=== PATIENT | male | born 1965 | race African-American/Black ===

== ENCOUNTER 2017-11-26 19:27 | Emergency (ER) | payer OTHER ==
[~2017-11-26] VITALS: Ht 180.3 cm; Wt 71.3 kg
[2017-11-26 19:32] VITALS: BP 126/67; PULSE 84; RESP 18; TEMP 101.1; O2SAT 96
[2017-11-26 20:00] VITALS: O2SAT 97
[2017-11-26] MEDS ORDERED: ACETAMINOPHEN 650 MG SUPP RECTAL ONE (20:00)
[2017-11-26] MEDS ORDERED: SODIUM CHLOR 0.9% 1000 ML INJ 1,000 ML IV ONE (20:00)
--- NOTE | 2017-11-26 20:18 | PD ---
HPI . Hiccups Chief Complaint: Cold / Flu Symptoms Time Seen by Provider: 19:56 Travel History International Travel<30 days: No Contact w/Intl Traveler<30days: No Traveled to known affect area: No History of Present Illness HPI This patient presents with a chief complaint of hiccups for the last 2 days. The hiccups are causing abdominal pain which he rates 10/10. The hiccups are continuous. He also reports vomiting. In addition, he has a "cold" with rhinorrhea and cough. He has taken TheraFlu for that. Last dose was 4-5 hours ago. Symptoms have not improved with TheraFlu. PFSH Past Medical History Medical History: Denies Significant Hx Tetanus Vaccination: > 5 Years Influenza Vaccination: No Past Surgical History Surgical History: No Previous Surgery Social History Alcohol Use: Yes (2 BEERS DAILY) Tobacco Use: Yes (1/2 PPD) Substance Use: No Allergies-Medications (Allergen,Severity, Reaction): Coded Allergies: penicillin G (Verified Allergy, Unknown, FAINTS, 11/26/17) Reported Meds & Prescriptions Reported Meds & Active Scripts Active No Active Prescriptions or Reported Medications Review of Systems Except as stated in HPI: all other systems reviewed are Neg General / Constitutional: Positive: Fever, Chills HENT: Positive: Rhinorrhea Respiratory: Positive: Cough Gastrointestinal: Positive: Nausea, Vomiting, Abdominal Pain Physical Exam Narrative Vital Signs Date Time Temp Pulse Resp B/P (MAP) Pulse Ox O2 Delivery O2 Flow Rate FiO2 11/26/17 20:00 97 Room Air 11/26/17 19:37 Room Air 11/26/17 19:32 101.1 84 18 126/67 (86) 96 GENERAL: Awake and alert. Continuous, rhythmic hiccups. SKIN: warm/dry. HEAD: Normocephalic. Atraumatic. EYES: Pupils equal and round. No scleral icterus. No injection or drainage. ENT: No nasal bleeding or discharge. Mucous membranes pink and moist. NECK: Trachea midline. Full range of motion without pain.. CARDIOVASCULAR: Regular rate and rhythm. Heart sounds normal. RESPIRATORY: No accessory muscle use. Clear to auscultation. Breath sounds equal bilaterally. GASTROINTESTINAL: Abdomen soft. Upper abdominal tenderness with no guarding or rebound. Bowel sounds present. Nondistended. MUSCULOSKELETAL: No obvious deformities. NEUROLOGICAL: Awake and alert. No obvious cranial nerve deficits. Motor grossly within normal limits. Normal speech. PSYCHIATRIC: Appropriate mood and affect; insight and judgment normal. Data Data Last Documented VS Vital Signs Date Time Temp Pulse Resp B/P (MAP) Pulse Ox O2 Delivery O2 Flow Rate FiO2 11/26/17 20:46 101.1 78 18 123/73 (90) 96 Room Air Orders Orders Chlorpromazine Inj (Thorazine Inj) (11/26/17 20:00) Sepsis Workup Initiated (11/26/17 ) Complete Blood Count With Diff (11/26/17 19:56) Comprehensive Metabolic Panel (11/26/17 19:56) Lactic Acid Sepsis Protocol (11/26/17 19:56) Blood Culture (11/26/17 19:56) Chest, Single Ap (11/26/17 19:56) Ecg Monitoring (11/26/17 19:56) Iv Access Insert/Monitor (11/26/17 19:56) Oximetry (11/26/17 19:56) Acetaminophen Supp (Tylenol Supp) (11/26/17 20:00) Sodium Chlor 0.9% 1000 Ml Inj (Ns 1000 M (11/26/17 20:00) Influenzae A/B Antigen (11/26/17 19:56) Ibuprofen (Motrin) (11/26/17 21:00) Labs Laboratory Tests Test 11/26/17 20:10 White Blood Count 9.0 TH/MM3 Red Blood Count 5.03 MIL/MM3 Hemoglobin 16.1 GM/DL Hematocrit 46.3 % Mean Corpuscular Volume 92.0 FL Mean Corpuscular Hemoglobin 31.9 PG Mean Corpuscular Hemoglobin Concent 34.7 % Red Cell Distribution Width 12.9 % Platelet Count 142 TH/MM3 Mean Platelet Volume 10.2 FL Neutrophils (%) (Auto) 79.6 % Lymphocytes (%) (Auto) 12.6 % Monocytes (%) (Auto) 7.3 % Eosinophils (%) (Auto) 0.1 % Basophils (%) (Auto) 0.4 % Neutrophils # (Auto) 7.2 TH/MM3 Lymphocytes # (Auto) 1.1 TH/MM3 Monocytes # (Auto) 0.7 TH/MM3 Eosinophils # (Auto) 0.0 TH/MM3 Basophils # (Auto) 0.0 TH/MM3 CBC Comment DIFF FINAL Differential Comment Blood Urea Nitrogen 12 MG/DL Creatinine 1.10 MG/DL Random Glucose 111 MG/DL Total Protein 8.6 GM/DL Albumin 4.0 GM/DL Calcium Level 8.9 MG/DL Alkaline Phosphatase 50 U/L Aspartate Amino Transf (AST/SGOT) 67 U/L Alanine Aminotransferase (ALT/SGPT) 49 U/L Total Bilirubin 0.2 MG/DL Sodium Level 133 MEQ/L Potassium Level 4.2 MEQ/L Chloride Level 96 MEQ/L Carbon Dioxide Level 28.2 MEQ/L Anion Gap 9 MEQ/L Estimat Glomerular Filtration Rate 86 ML/MIN Lactic Acid Level 1.2 mmol/L [facility] Medical Decision Making Medical Screen Exam Complete: Yes Emergency Medical Condition: Yes Differential Diagnosis Differential diagnosis of fever includes but is not limited to viral illness, strep throat, otitis media, pneumonia, sepsis, UTI Narrative Course This patient presents with a chief complaint of hiccups and the secondary complaint of "a cold." He has a fever here while 101.9. I have ordered Thorazine for his hiccups. Septic workup is in process. Fever will be treated with Tylenol. He is also being given a liter of fluid. Hiccups have stopped with Thorazine. CBC & BMP Diagram 11/26/17 20:10 Total Protein 8.6 H, Albumin 4.0, Calcium Level 8.9, Alkaline Phosphatase 50, Aspartate Amino Transf (AST/SGOT) 67 H, Alanine Aminotransferase (ALT/SGPT) 49, Total Bilirubin 0.2 Flu screen is negative. Lactic acid is 1.2. Chest x-ray has been read as negative by the radiologist. It has been independently viewed by me. Diagnosis Primary Impression: Intractable hiccups Additional Impression: Fever Qualified Codes: R50.9 - Fever, unspecified Patient Instructions: Fever in Adults (ED), General Instructions, Hiccups (DC) Scripts No Active Prescriptions or Reported Meds Disposition: DISCHARGE HOME Condition: Stable Sandrine Parra MD Nov 26, 2017 20:18
[2017-11-26 20:33] LABS: AUTOMATED NEUTROPHIL # 7.2 TH/MM3 (1.8-7.7); BASOPHIL % 0.4 % (0.0-2.0); EOSINOPHIL % 0.1 % (0.0-4.0); HEMATOCRIT 46.3 % (39.0-51.0); HEMOGLOBIN 16.1 GM/DL (13.0-17.0); LYMPH % 12.6 % (9.0-44.0); LYMPHOCYTE # 1.1 TH/MM3 (1.0-4.8); MEAN CORPUSCULAR HEMOGLOBIN 31.9 PG (27.0-34.0); MEAN CORPUSCULAR HGB CONC 34.7 % (32.0-36.0); MEAN PLATELET VOLUME 10.2 FL (7.0-11.0); MONO % 7.3 % (0.0-8.0); MONOCYTE # 0.7 TH/MM3 (0-0.9); NEUT % 79.6 % (16.0-70.0); PLATELET COUNT 142 TH/MM3 (150-450); RED BLOOD COUNT 5.03 MIL/MM3 (4.50-5.90); RED CELL DISTRIBUTION WIDTH 12.9 % (11.6-17.2)
[2017-11-26 20:39] LABS: CHLORIDE 96 MEQ/L (98-107); SODIUM (NA) 133 MEQ/L (136-145)
[2017-11-26 20:43] LABS: BICARBONATE 28.2 MEQ/L (21.0-32.0); BLOOD UREA NITROGEN 12 MG/DL (7-18); CALCIUM 8.9 MG/DL (8.5-10.1); GLUCOSE,RANDOM 111 MG/DL (74-106)
[2017-11-26 20:46] VITALS: BP 123/73; PULSE 78; RESP 18; TEMP 101.1; O2SAT 96
[2017-11-26 20:46] LABS: ALT (GPT) 49 U/L (12-78); AST (GOT) 67 U/L (15-37); GLOMERULAR FILTRATION RATE 86 ML/MIN (>89)
[2017-11-26 20:48] LABS: TOTAL BILIRUBIN ADULT 0.2 MG/DL (0.2-1.0); TOTAL PROTEIN 8.6 GM/DL (6.4-8.2)
[2017-11-26 20:49] LABS: ALKALINE PHOSPHATASE 50 U/L (45-117)
--- NOTE | 2017-11-26 20:58 | RADRPT ---
EXAM DATE/TIME: 11/26/2017 20:20 [facility] COMPARISON: No previous studies available for comparison. INDICATIONS : Fever, cough. MEDICAL HISTORY : None. SURGICAL HISTORY : None. ENCOUNTER: Initial ACUITY: 1 day PAIN SCORE: 0/10 LOCATION: Bilateral chest FINDINGS: A single view of the chest demonstrates the lungs to be symmetrically aerated without evidence of mas s, infiltrate or effusion. The cardiomediastinal contours are unremarkable. Osseous structures are intact. CONCLUSION: No acute disease. Akash Squires MD on November 26, 2017 at 20:56 Board Certified Radiologist. This report was verified electronically.
[2017-11-26] MEDS ORDERED: IBUPROFEN 800 MG TAB PO ONE (21:00)
[2017-11-26 21:38] VITALS: TEMP 98.2
== END 2017-11-26 21:42 | disposition home or self-care (01) ==
LOC: PHED 19:27
DX: R06.6 Hiccough (principal); B95.8 Unspecified staphylococcus as the cause of diseases classified elsewhere; R50.9 Fever, unspecified; R09.81 Nasal congestion; R05 Cough; R11.2 Nausea with vomiting, unspecified; F17.200 Nicotine dependence, unspecified, uncomplicated; Z88.0 Allergy status to penicillin
CPT/HCPCS: 71045; 80053; 83605; 85025; 86403; 87040; 87077; 87186; 87205; 87804; 96360; 96372; 99284; J3230; J7030

== ENCOUNTER 2017-11-28 15:00 | Inpatient (IN) | payer OTHER ==
[~2017-11-28] VITALS: Ht 180.3 cm; Wt 71.1 kg
[2017-11-28 15:28] VITALS: BP 126/64; PULSE 68; RESP 18; TEMP 98.9; O2SAT 99
[2017-11-28] MEDS ORDERED: SODIUM CHLOR 0.9% 1000 ML INJ 1,000 ML IV ONE (15:55)
[2017-11-28] MEDS ORDERED: VANCOMYCIN INJ 1,000 MG in SODIUM CHLOR 0.9% 250 ML INJ 250 ML IV ONE (16:00)
[2017-11-28] MEDS ORDERED: chlorproMAZINE INJ 25 MG in SODIUM CHLORID 0.9% 500 ML INJ 500 ML IV ONE ×2 (16:00→16:45)
--- NOTE | 2017-11-28 16:00 | PD ---
HPI Chief Complaint: Respiratory Symptoms Time Seen by Provider: 15:51 Travel History International Travel<30 days: No Contact w/Intl Traveler<30days: No Traveled to known affect area: No History of Present Illness HPI 52-year-old male seen in the emergency department 2 days ago for fever and intractable hiccups which resolved after Thorazine, call back today for positive blood cultures. The patient's cultures grew gram-positive cocci. Patient reports ongoing hiccups which started 4 days ago. He complains of abdominal pain, vomiting, and cough productive of yellowish sputum as well as some hemoptysis. He complained of generalized malaise. Abdominal pain is cramping, worse with hiccups, coughing, and vomiting. No diarrhea. No history of abdominal surgeries. He smokes cigarettes. No history of IVDU. [facility] Social History Alcohol Use: Yes (2 BEERS DAILY) Tobacco Use: Yes (1/2 PPD) Substance Use: No Allergies-Medications (Allergen,Severity, Reaction): Coded Allergies: penicillin G (Verified Allergy, Unknown, FAINTS, 11/28/17) Reported Meds & Prescriptions Reported Meds & Active Scripts Active No Active Prescriptions or Reported Medications Review of Systems Except as stated in HPI: all other systems reviewed are Neg Physical Exam Narrative GENERAL: Well-developed, well-nourished, persistent hiccups SKIN: Focused skin assessment warm/dry. No rash. HEAD: Atraumatic. Normocephalic. EYES: Pupils equal and round. No scleral icterus. No injection or drainage. ENT: No nasal bleeding or discharge. Mucous membranes pink and moist. Normal appearing pharynx without erythema or exudates. NECK: Trachea midline. No JVD. No nuchal rigidity. CARDIOVASCULAR: Regular rate and rhythm. No murmur appreciated. RESPIRATORY: No accessory muscle use. Clear to auscultation. Breath sounds equal bilaterally. GASTROINTESTINAL: Abdomen soft, nondistended. Moderate diffuse tenderness without peritoneal signs. MUSCULOSKELETAL: No obvious deformities. No clubbing. No cyanosis. No edema. NEUROLOGICAL: Awake and alert. No obvious cranial nerve deficits. Motor grossly within normal limits. Normal speech. PSYCHIATRIC: Appropriate mood and affect; insight and judgment normal. Data Data Last Documented VS Vital Signs Date Time Temp Pulse Resp B/P (MAP) Pulse Ox O2 Delivery O2 Flow Rate FiO2 11/28/17 16:30 Room Air 11/28/17 16:30 16 100 11/28/17 15:28 98.9 68 126/64 (84) Orders Orders Sepsis Workup Initiated (11/28/17 ) Electrocardiogram (11/28/17 15:55) Complete Blood Count With Diff (11/28/17 15:55) Comprehensive Metabolic Panel (11/28/17 15:55) Prothrombin Time / Inr (Pt) (11/28/17 15:55) Act Partial Throm Time (Ptt) (11/28/17 15:55) Lactic Acid Sepsis Protocol (11/28/17 15:55) Lipase (11/28/17 15:55) Ckmb (Isoenzyme) Profile (11/28/17 15:55) Troponin I (11/28/17 15:55) Urinalysis - C+S If Indicated (11/28/17 15:55) Influenzae A/B Antigen (11/28/17 15:55) Blood Culture (11/28/17 15:55) Chest, Single Ap (11/28/17 15:55) Ecg Monitoring (11/28/17 15:55) Iv Access Insert/Monitor (11/28/17 15:55) Oximetry (11/28/17 15:55) Ct Abd/Pel W Iv Contrast(Rout) (11/28/17 15:55) Sodium Chlor 0.9% 1000 Ml Inj (Ns 1000 M (11/28/17 15:55) Vancomycin Inj (Vancomycin Inj) (11/28/17 16:00) Group A Rapid Strep Screen (11/28/17 15:55) Ct Pulmonary Angiogram (11/28/17 ) Chlorpromazine Inj (Thorazine Inj) (11/28/17 16:00) Chlorpromazine Inj (Thorazine Inj) (11/28/17 16:45) Iohexol 350 Inj (Omnipaque 350 Inj) (11/28/17 16:54) Strep Culture (Group A) (11/28/17 16:15) Cefepime Inj (Maxipime Inj) (11/28/17 17:30) Labs Laboratory Tests Test 11/28/17 16:15 White Blood Count 9.7 TH/MM3 Red Blood Count 4.76 MIL/MM3 Hemoglobin 14.8 GM/DL Hematocrit 44.7 % Mean Corpuscular Volume 93.7 FL Mean Corpuscular Hemoglobin 31.0 PG Mean Corpuscular Hemoglobin Concent 33.1 % Red Cell Distribution Width 12.7 % Platelet Count 165 TH/MM3 Mean Platelet Volume 10.0 FL Neutrophils (%) (Auto) 78.3 % Lymphocytes (%) (Auto) 12.0 % Monocytes (%) (Auto) 6.7 % Eosinophils (%) (Auto) 0.1 % Basophils (%) (Auto) 2.9 % Neutrophils # (Auto) 7.6 TH/MM3 Lymphocytes # (Auto) 1.2 TH/MM3 Monocytes # (Auto) 0.6 TH/MM3 Eosinophils # (Auto) 0.0 TH/MM3 Basophils # (Auto) 0.3 TH/MM3 CBC Comment DIFF FINAL Differential Comment Lactic Acid Level 1.4 mmol/L [facility] Medical Decision Making Medical Screen Exam Complete: Yes Emergency Medical Condition: Yes Medical Record Reviewed: Yes Differential Diagnosis Sepsis, bacteremia, endocarditis, PE, intra-abdominal abnormality, ACS, metabolic abnormality, lung mass, strep pharyngitis, influenza, singultus Narrative Course Vital signs show heart rate 60, blood pressure 126/64, pulse ox 99% on room air , oral temperature 98.9F. CBC: WBC 9.7, hemoglobin 14.8, hematocrit 44.7, platelets 165, neutrophils 78.3% . CMP Lactic acid is 1.4. CT pulmonary angiogram: CONCLUSION: 1. No PE is identified. 2. Dense airspace consolidation in the right upper lobe with patchy airspace opacities in both lower lobes. The appearances are characteristic of an infectious process. Recommend followup imaging to confirm resolution. 3. Paraseptal emphysema with 4 mm left upper lobe pulmonary nodule. Suggest attention to this on followup imaging. CT abdomen and pelvis: CONCLUSION: 1. There is a small volume of free fluid in the pelvis from uncertain etiology. Otherwise, no acute finding is seen. 2. Severe atherosclerotic disease. Patient was made aware of all findings. He was initially started on IV vancomycin for gram-positive cocci in his blood culture. After CT of the thorax was read, the patient was written for cefepime. Initially his hiccups resolved temporarily after stimulation of the posterior pharynx with a Q-tip, however returned about 15 minutes later. He was given Thorazine IV without any change in his hiccups. Patient will be admitted for further treatment and evaluation. Case discussed with hospitalist Dr. Lynne who will admit the patient to his service. Diagnosis Primary Impression: Pneumonia Qualified Codes: J18.9 - Pneumonia, unspecified organism Additional Impressions: Bacteremia Intractable hiccups Admitting Information Admitting Physician Requests: Admit Scripts No Active Prescriptions or Reported Meds Rony Pastor MD Nov 28, 2017 16:00
[2017-11-28 16:30] VITALS: RESP 16; O2SAT 100
[2017-11-28 16:39] LABS: AUTOMATED NEUTROPHIL # 7.6 TH/MM3 (1.8-7.7); BASOPHIL # 0.3 TH/MM3 (0-0.2); BASOPHIL % 2.9 % (0.0-2.0); EOSINOPHIL % 0.1 % (0.0-4.0); HEMATOCRIT 44.7 % (39.0-51.0); HEMOGLOBIN 14.8 GM/DL (13.0-17.0); LYMPHOCYTE # 1.2 TH/MM3 (1.0-4.8); MEAN CELL VOLUME 93.7 FL (80.0-100.0); MEAN CORPUSCULAR HGB CONC 33.1 % (32.0-36.0); MONO % 6.7 % (0.0-8.0); MONOCYTE # 0.6 TH/MM3 (0-0.9); NEUT % 78.3 % (16.0-70.0); PLATELET COUNT 165 TH/MM3 (150-450); RED BLOOD COUNT 4.76 MIL/MM3 (4.50-5.90); RED CELL DISTRIBUTION WIDTH 12.7 % (11.6-17.2); WHITE BLOOD COUNT 9.7 TH/MM3 (4.0-11.0)
--- NOTE | 2017-11-28 16:41 | RADRPT ---
EXAM DATE/TIME: 11/28/2017 16:16 [facility] COMPARISON: CHEST SINGLE AP, November 26, 2017, 20:20. INDICATIONS : Cough and hiccups for 5 days. MEDICAL HISTORY : None. SURGICAL HISTORY : None. ENCOUNTER: Initial ACUITY: 4 - 6 days PAIN SCORE: 2/10 LOCATION: Bilateral chest FINDINGS: Portable AP view of the chest demonstrates a normal-sized cardiac silhouette. There is mild airspace opacity in the right midlung zone. No effusion or pneumothorax is identified. The bones and soft tiss ues demonstrate no acute finding. CONCLUSION: Possible mild airspace consolidation in the right midlung. Patient has a CT scan of the chest schedul ed. Attention can be paid to this at that time. Allan Bagley MD on November 28, 2017 at 16:39 Board Certified Radiologist. This report was verified electronically.
[2017-11-28] MEDS ORDERED: IOHEXOL 350 MG/ML 10 ML VIAL (for RAD DIAG) IVCONTRAST ONE (16:54)
--- NOTE | 2017-11-28 17:09 | RADRPT ---
EXAM DATE/TIME: 11/28/2017 16:42 [facility] COMPARISON: No previous studies available for comparison. INDICATIONS : Productive cough. IV CONTRAST: 95 cc Omnipaque 350 (iohexol) IV ; Cumulative dose for multiple exams. RADIATION DOSE: 14.68 CTDIvol (mGy) MEDICAL HISTORY : None SURGICAL HISTORY : None. ENCOUNTER: Initial ACUITY: 2 days PAIN SCALE: 0/10 LOCATION: chest TECHNIQUE: Volumetric scanning of the chest was performed using a pulmonary embolism protocol MIP images were re constructed. Using automated exposure control and adjustment of the mA and/or kV according to patien t size, radiation dose was kept as low as reasonably achievable to obtain optimal diagnostic quality images. DICOM format image data is available electronically for review and comparison. Follow-up recommendations for detected pulmonary nodules are based at a minimum on nodule size and pa tient risk factors according to Fleischner Society Guidelines. FINDINGS: PULMONARY ARTERIES: No filling defects are seen in the pulmonary arteries through the segmental level. LUNGS: There is a paraseptal emphysema in the upper lobes. There is focal dense airspace consolidation in th e posterior segment of the right upper lobe with patchy consolidation and tree in bud opacity involvi ng both lower lobes. No pneumothorax is present. In the left upper lobe there is a 4 mm noncalcified pulmonary nodule. PLEURAE: There is no pleural thickening or pleural effusion. MEDIASTINUM: Heart and great vessels demonstrate no acute finding. No lymphadenopathy is visualized. MUSCULOSKELETAL: Within normal limits for patient age. MISCELLANEOUS: The visualized upper abdominal organs demonstrate no acute abnormality. CONCLUSION: 1. No PE is identified. 2. Dense airspace consolidation in the right upper lobe with patchy airspace opacities in both lower lobes. The appearances are characteristic of an infectious process. Recommend followup imaging to con firm resolution. 3. Paraseptal emphysema with 4 mm left upper lobe pulmonary nodule. Suggest attention to this on foll owup imaging. Allan Bagley MD on November 28, 2017 at 17:03 Board Certified Radiologist. This report was verified electronically.
--- NOTE | 2017-11-28 17:12 | RADRPT ---
EXAM DATE/TIME: 11/28/2017 16:42 [facility] COMPARISON: No previous studies available for comparison. INDICATIONS : Diffuse abdominal pain and cramping. IV CONTRAST: 95 cc Omnipaque 350 (iohexol) IV ; Cumulative dose for multiple exams. ORAL CONTRAST: No oral contrast ingested. RADIATION DOSE: 12.85 CTDIvol (mGy) MEDICAL HISTORY : None SURGICAL HISTORY : None. ENCOUNTER: Initial ACUITY: 2 days PAIN SCALE: 5/10 LOCATION: pelvis abdomen TECHNIQUE: Volumetric scanning of the abdomen and pelvis was performed. Using automated exposure control and ad justment of the mA and/or kV according to patient size, radiation dose was kept as low as reasonably achievable to obtain optimal diagnostic quality images. DICOM format image data is available electro nically for review and comparison. FINDINGS: LOWER LUNGS: Please refer to chest CT report for description of the supradiaphragmatic findings. LIVER: Homogeneous density without lesion. There is no dilation of the biliary tree. No calcified gallston es. SPLEEN: Normal size without lesion. PANCREAS: Within normal limits. KIDNEYS: Normal in size and shape. There is no mass, stone or hydronephrosis. ADRENAL GLANDS: Within normal limits. VASCULAR: There is no aortic aneurysm. There is severe atherosclerotic disease of the infrarenal aorta. BOWEL/MESENTERY: The stomach, small bowel, and colon demonstrate no acute abnormality. There is no free intraperitone al air. There is trace free fluid in the pelvis. ABDOMINAL WALL: Within normal limits. RETROPERITONEUM: There is no lymphadenopathy. BLADDER: No wall thickening or mass. REPRODUCTIVE: Within normal limits. INGUINAL: There is no lymphadenopathy or hernia. MUSCULOSKELETAL: No acute abnormality is identified. CONCLUSION: 1. There is a small volume of free fluid in the pelvis from uncertain etiology. Otherwise, no acute f inding is seen. 2. Severe atherosclerotic disease. Allan Bagley MD on November 28, 2017 at 17:08 Board Certified Radiologist. This report was verified electronically.
[2017-11-28 17:21] LABS: INTERNATIONAL NORMALIZED RATIO 1.2 RATIO; PROTHROMBIN TIME - PATIENT 11.9 SEC (9.8-11.6)
[2017-11-28] MEDS ORDERED: CEFEPIME INJ 2,000 MG in SODIUM CHLORIDE 0.9% INJ 100 ML IV ONE (17:30)
[2017-11-28 17:40] LABS: ALBUMIN 3.4 GM/DL (3.4-5.0); ALKALINE PHOSPHATASE 47 U/L (45-117); ALT (GPT) 46 U/L (12-78); AST (GOT) 83 U/L (15-37); BICARBONATE 30.1 MEQ/L (21.0-32.0); BLOOD UREA NITROGEN 7 MG/DL (7-18); CALCIUM 8.3 MG/DL (8.5-10.1); CHLORIDE 94 MEQ/L (98-107); GLOMERULAR FILTRATION RATE 86 ML/MIN (>89); GLUCOSE,RANDOM 90 MG/DL (74-106); SODIUM (NA) 129 MEQ/L (136-145); TOTAL BILIRUBIN ADULT 0.4 MG/DL (0.2-1.0); TOTAL PROTEIN 8.2 GM/DL (6.4-8.2); TROPONIN I LESS THAN 0.02 NG/ML (0.02-0.05)
[2017-11-28 17:54] VITALS: BP 114/70; PULSE 64; RESP 16; O2SAT 97
[2017-11-28 17:56] LABS: BILIRUBIN, URINE NEG (NEG); BLOOD, URINE SMALL (NEG); GLUCOSE,URINE NEG (NEG); KETONE, URINE NEG (NEG); NITRITE,URINE NEG (NEG); URINE LEUKOCYTE ESTERASE NEG (NEG)
[2017-11-28 18:03] LABS: URINE COLOR YELLOW (YELLW/STRAW)
[2017-11-28 18:04] LABS: RBC, URINE 0-3 /hpf (0-3); SQUAMOUS EPITHELIAL CELL URINE 0-5 /hpf (0-5); WBC, URINE 0-2 /hpf (0-5); WHITE BLOOD CELL CLUMPS OCC
[2017-11-28 19:22] VITALS: BP 128/75; PULSE 66; RESP 16; O2SAT 100
[2017-11-28 20:30] VITALS: BP 115/66; PULSE 68; RESP 20; TEMP 98.6; O2SAT 97
[2017-11-28 21:09] VITALS: O2SAT 97
[2017-11-28] MEDS ORDERED: ONDANSETRON HCL 4 MG/2 ML VIAL IV PUSH PRN (23:30)
[2017-11-28] MEDS ORDERED: FAMOTIDINE 20 MG/2 ML VIAL IV PUSH ONE (23:30)
[2017-11-29] VITALS: BP 104/57; PULSE 60; RESP 20; TEMP 98.7; O2SAT 98
[2017-11-29] MEDS ORDERED: LORazepam 2 MG/ML VIAL IV PUSH ONE (01:15)
[2017-11-29] MEDS: CEFEPIME INJ 1,000 MG in SODIUM CHLORIDE 0.9% INJ 100 ML IV SCH ×3 (04:12→19:44)
[2017-11-29 08:00] VITALS: BP 107/60; PULSE 52; RESP 18; TEMP 97.6; O2SAT 99
[2017-11-29 09:08] LABS: BICARBONATE 27.8 MEQ/L (21.0-32.0); CALCIUM 8.3 MG/DL (8.5-10.1); CREATININE 0.84 MG/DL (0.60-1.30)
--- NOTE | 2017-11-29 11:28 | EKG ---
Date Performed: 11/28/2017 Time Performed: 16:08:59 PTAGE: 52 years EKG: Sinus rhythm POSSIBLE LEFT VENTRICULAR HYPERTROPHY ABNORMAL ECG NO PREVIOUS TRACING DOCTOR: Harley Kilpatrick Interpretating Date/Time 11/29/2017 11:26:16
[2017-11-29 12:00] VITALS: BP 117/70; PULSE 52; RESP 18; TEMP 98; O2SAT 97
--- NOTE | 2017-11-29 12:49 | HHI.HP ---
[facility] No Primary Care Physician Admission Diagnosis Pneumonia, bacteremia, intractable hiccups Diagnoses: Travel History International Travel<30 Days: No Contact w/Intl Traveler <30 Da: No Traveled to Known Affected Are: No History of Present Illness has been having bad hiccpus monday and this makes him not able to breathe and then started having came here on monday, got dc from ER came back last night no meds taken at home on monday, was given thorazine shot and it worked while in ER but started back once he get home kept recurring and now stomach is hurting no recent intubation or anesthesia had fever - since monday made himself vomit with finger to help with breathing but vomit is mostly liquid because he has been taking liquids only takes ibuprofen for pains no urinary symptoms no blood was very dizzy when he had hiccups and cough Review of Systems Except as stated in HPI: all other systems reviewed are Neg Past Family Social History Past Medical History blood cx on 11/2517 in ER positive for coag neg and coag positive gram positive no previous hx Past Surgical History none Allergies: Coded Allergies: penicillin G (Verified Allergy, Unknown, FAINTS, 11/28/17) Family History mother- long line of cancer in her 9 sibilings brother and sister- none that he knows of Social History smokes about half a pack a day, quit yesterday no etoh abuse no drugs works as tree work prn Physical Exam Vital Signs Vital Signs Date Time Temp Pulse Resp B/P (MAP) Pulse Ox O2 Delivery O2 Flow Rate FiO2 11/29/17 12:00 98.0 52 18 117/70 (86) 97 11/29/17 08:00 97.6 52 18 107/60 (76) 99 11/29/17 00:00 98.7 60 20 104/57 (73) 98 11/28/17 21:09 97 21 11/28/17 20:30 98.6 68 20 115/66 (82) 97 11/28/17 20:04 11/28/17 19:22 66 16 128/75 (92) 100 Room Air 11/28/17 17:54 64 16 114/70 (85) 97 Room Air 11/28/17 16:30 Room Air 11/28/17 16:30 16 100 Room Air 11/28/17 15:28 98.9 68 18 126/64 (84) 99 Physical Exam GENERAL: This is a well-nourished, well-developed patient, in no apparent distress. SKIN: No rashes, ecchymoses or lesions. Cool and dry. HEAD: Atraumatic. Normocephalic. No temporal or scalp tenderness. EYES: . No scleral icterus. No injection or drainage. ENT: Nose without bleeding, purulent drainage or septal hematoma. Airway patent. NECK: Trachea midline. No JVD CARDIOVASCULAR: Regular rate and rhythm without murmurs, gallops, or rubs. RESPIRATORY: Clear to auscultation. Breath sounds equal bilaterally. No wheezes , rales, or rhonchi. GASTROINTESTINAL: Abdomen soft, , nondistended. No guarding. Pain on palpation diffusely. MUSCULOSKELETAL: Extremities without clubbing, cyanosis, or edema. No calf tenderness. NEUROLOGICAL: Awake and alert. Motor and sensory grossly within normal limits.Normal speech. Laboratory Laboratory Tests Test 11/28/17 16:15 11/28/17 17:35 11/29/17 08:17 White Blood Count 9.7 Red Blood Count 4.76 Hemoglobin 14.8 Hematocrit 44.7 Mean Corpuscular Volume 93.7 Mean Corpuscular Hemoglobin 31.0 Mean Corpuscular Hemoglobin Concent 33.1 Red Cell Distribution Width 12.7 Platelet Count 165 Mean Platelet Volume 10.0 Neutrophils (%) (Auto) 78.3 Lymphocytes (%) (Auto) 12.0 Monocytes (%) (Auto) 6.7 Eosinophils (%) (Auto) 0.1 Basophils (%) (Auto) 2.9 Neutrophils # (Auto) 7.6 Lymphocytes # (Auto) 1.2 Monocytes # (Auto) 0.6 Eosinophils # (Auto) 0.0 Basophils # (Auto) 0.3 CBC Comment DIFF FINAL Differential Comment Prothrombin Time 11.9 Prothromb Time International Ratio 1.2 Activated Partial Thromboplast Time 29.9 Blood Urea Nitrogen 7 7 Creatinine 1.10 0.84 Random Glucose 90 89 Total Protein 8.2 Albumin 3.4 Calcium Level 8.3 8.3 Alkaline Phosphatase 47 Aspartate Amino Transf (AST/SGOT) 83 Alanine Aminotransferase (ALT/SGPT) 46 Total Bilirubin 0.4 Sodium Level 129 135 Potassium Level 5.2 3.9 Chloride Level 94 100 Carbon Dioxide Level 30.1 27.8 Anion Gap 5 7 Estimat Glomerular Filtration Rate 86 117 Lactic Acid Level 1.4 Total Creatine Kinase 618 Creatine Kinase MB 1.3 Creatine Kinase MB % 0.2 Troponin I LESS THAN 0.02 Lipase 129 Urine Color YELLOW Urine Turbidity CLEAR Urine pH 7.0 Urine Specific [place] GREATER THAN 1.035 Urine Protein TRACE Urine Glucose (UA) NEG Urine Ketones NEG Urine Occult Blood SMALL Urine Nitrite NEG Urine Bilirubin NEG Urine Leukocyte Esterase NEG Urine RBC 0-3 Urine WBC 0-2 Urine WBC Clumps OCC Urine Squamous Epithelial Cells 0-5 Microscopic Urinalysis Comment CULTURE INDICATED Date/Time Source Procedure Growth Status 11/28/17 16:30 Blood Peripheral Aerobic Blood Culture - Preliminary NO GROWTH IN 1 DAY Resulted 11/28/17 16:30 Blood Peripheral Anaerobic Blood Culture - Preliminary NO GROWTH IN 1 DAY Resulted 11/28/17 16:15 Throat Group A Streptococcus Screen Pending Received 11/28/17 17:35 Urine Clean Catch Urine Culture - Preliminary NO GROWTH IN 24 HOURS. Resulted Result Diagram: 11/28/17 1615 11/29/17 0817 Imaging Last 48 hours Impressions Chest X-Ray 11/28/17 1555 Signed Impressions: Service Date/Time: Tuesday, November 28, 2017 16:16 - CONCLUSION: Possible mild airspace consolidation in the right midlung. Patient has a CT scan of the chest scheduled. Attention can be paid to this at that time. Allan Bagley MD Abdomen/Pelvis CT 11/28/17 1555 Signed Impressions: Service Date/Time: Tuesday, November 28, 2017 16:42 - CONCLUSION: 1. There is a small volume of free fluid in the pelvis from uncertain etiology. Otherwise, no acute finding is seen. 2. Severe atherosclerotic disease. Allan Bagley MD CT Angiography 11/28/17 0000 Signed Impressions: Service Date/Time: Tuesday, November 28, 2017 16:42 - CONCLUSION: 1. No PE is identified. 2. Dense airspace consolidation in the right upper lobe with patchy airspace opacities in both lower lobes. The appearances are characteristic of an infectious process. Recommend followup imaging to confirm resolution. 3. Paraseptal emphysema with 4 mm left upper lobe pulmonary nodule. Suggest attention to this on followup imaging. MD Adama Duvall VTE Risk Assessment Camilorindonaldo VTE Risk Assessment: No/Low Risk (score <= 1) Caprini Risk Assessment Model Point Value = 1 Point Value = 2 Point Value = 3 Point Value = 5 Age 41-60 Minor surgery BMI > 25 kg/m2 Swollen legs Varicose veins or History of unexplained or recurrent spontaneous Oral contraceptives or hormone replacement Sepsis (< 1 month) Serious lung disease, including pneumonia (< 1 month) Abnormal pulmonary function Acute myocardial infarction Congestive heart failure (< 1 month) History of inflammatory bowel disease Medical patient at bed rest Age 61-74 Arthroscopic surgery Major open surgery (> 45 min) Laparoscopic surgery (> 45 min) Malignancy Confined to bed (> 72 hours) Immobilizing plaster cast Central venous access Age >= 75 History of VTE Family history of VTE Factor V Leiden Prothrombin [id number] Lupus anticoagulant Anticardiolipin antibodies Elevated serum homocysteine Heparin-induced thrombocytopenia Other congenital or acquired thrombophilia Stroke (< 1 month) Elective arthroplasty Hip, pelvis, or leg fracture Acute spinal cord injury (< 1 month) Prophylaxis Regimen Total Risk Factor Score Risk Level Prophylaxis Regimen 0-1 Low Early ambulation 2 Moderate Order ONE of the following: *Sequential Compression Device (SCD) *Heparin 5000 units SQ BID 3-4 Higher Order ONE of the following medications: *Heparin 5000 units SQ TID *Enoxaparin/Lovenox 40 mg SQ daily (WT < 150 kg, CrCl > 30 mL/min) *Enoxaparin/Lovenox 30 mg SQ daily (WT < 150 kg, CrCl > 10-29 mL/min) *Enoxaparin/Lovenox 30 mg SQ BID (WT < 150 kg, CrCl > 30 mL/min) AND/OR *Sequential Compression Device (SCD) 5 or more Highest Order ONE of the following medications: *Heparin 5000 units SQ TID (Preferred with Epidurals) *Enoxaparin/Lovenox 40 mg SQ daily (WT < 150 kg, CrCl > 30 mL/min) *Enoxaparin/Lovenox 30 mg SQ daily (WT < 150 kg, CrCl > 10-29 mL/min) *Enoxaparin/Lovenox 30 mg SQ BID (WT < 150 kg, CrCl > 30 mL/min) AND *Sequential Compression Device (SCD) Assessment and Plan Assessment and Plan Impression: Intractable hiccups. Etiology unclear. No evidence of diaphragmatic paralysis per imaging studies. Pneumonia. Bilateral. More on the right side. Question whether patient is aspirating. Possible that he is aspirating because of him doing self induced vomiting during the episodes of hiccups because hiccups were causing him to have airway compromise and stridor. Positive blood cultures on November 26, 2017. Possible contaminant. However 1 is growing gram-positive cocci in pairs and clusters. COPD/emphysema Arthrosclerotic disease on CT imaging Plan: Patient was given vancomycin in ER. CT pulmonary angiogram personally reviewed. No evidence of pulmonary embolism. Bilateral pneumonia. Influenza screen was negative. Strep throat cultures were negative. Agree with cefepime IV for treatment of his pneumonia. Nebs when necessary. From the history, I do suspect that patient may be having some mechanism that is causing him to aspirate and cause pneumonia. Unsure why he is having hiccups. However is somewhat reassuring since patient reports that he has had hiccups since childhood although never this severe. Would consult GI for possible EGD to rule out anatomic variance causing his symptoms. Patient is counseled in detail regarding smoking cessation. Patient is informed of emphysematous changes on his CT and arthrosclerotic disease found on CT. We'll follow up with repeat blood cultures. Pain control with morphine 2 mg IV every 3 hours when necessary. Thorazine 50 mg I IM every 8 hours when necessary for hiccups. Telemetry monitoring. DVT prophylaxis with ambulation. GI prophylaxis on famotidine. Discussed Condition With Patient, nursing staff Physician Certification Order for Inpatient Services The services are ordered in accordance with Medicare regulations or non- Medicare payer requirements, as applicable. In the case of services not specified as inpatient-only, they are appropriately provided as inpatient services in accordance with the 2-midnight benchmark. days is the estimated time the patient will need to remain in the hospital, assuming treatment plan goals are met and no additional complications. Ramses Puga MD Nov 29, 2017 12:49
[2017-11-29] MEDS: FAMOTIDINE 20 MG/2 ML VIAL IV PUSH SCH (13:31)
[2017-11-29] MEDS: MORPHINE SULFATE 2 MG/ML INJ IV PUSH PRN ×3 (13:32→22:27)
[2017-11-29 16:00] VITALS: BP 126/72; PULSE 51; RESP 18; TEMP 98.5; O2SAT 99
[2017-11-29 19:00] VITALS: BP 118/74; PULSE 56; RESP 16; TEMP 98.2; O2SAT 99
[2017-11-29 23:22] VITALS: PULSE 49
[2017-11-30] VITALS: BP 116/61; PULSE 59; RESP 16; TEMP 98.2; O2SAT 97
[2017-11-30] MEDS: FAMOTIDINE 20 MG/2 ML VIAL IV PUSH SCH (02:04)
[2017-11-30] MEDS: CEFEPIME INJ 1,000 MG in SODIUM CHLORIDE 0.9% INJ 100 ML IV SCH ×2 (03:48→14:13)
[2017-11-30 04:00] VITALS: BP 116/70; PULSE 52; RESP 20; TEMP 98.7; O2SAT 99
--- NOTE | 2017-11-30 07:35 | GIPROC ---
[facility] [address] [place] [address], [id number] EGD PROCEDURE REPORT EXAM DATE: 11/30/2017 PATIENT NAME: Evelio Barrientos MR #: [id number] BIRTHDATE: 1965 ATTENDING: Maegan Landers MD ORDER #: [id number] SENIOR TECHNICAL PROGRAM MANAGER: Vaughn Issa and Sabina Palmer STATUS: inpatient INDICATIONS: The patient is a 52 yr old male here for an EGD due to hiccups, abdominal pain PROCEDURE PERFORMED: EGD w/ biopsy EGD w/ dilation of esophagus via guidewire MEDICATIONS: None and Per Anesthesia. TOPICAL ANESTHETIC: none CONSENT: The patient understands the risks and benefits of the procedure and understands that these risks include, but are not limited to: sedation, allergic reaction, infection, perforation and/or bleeding. Alternative means of evaluation and treatment include, among others: physical exam, x-rays, and/or surgical intervention. The patient elects to proceed with this endoscopic procedure. medical equipment was checked for proper function. Hand hygiene and appropriate measures for infection prevention was taken. After the risks, benefits and alternatives of the procedure were thoroughly explained, Informed consent was verified, confirmed and timeout was successfully executed by the treatment team. The patient was anesthetized with topical anesthesia and the Pentax EG-[id number] endoscope was introduced through the mouth and advanced to the second portion of the duodenum. Retroflexed views revealed a hiatal hernia The gastroscope was then slowly withdrawn and removed. Esophagitis distal esophagus-biopsy stricture distal esophagus-s/p dilatation Savary 15 gastritis antrum-biopsy duodenitis second portion-biopsy. ADVERSE EVENTS: There were no complications. IMPRESSIONS: 1. Esophagitis distal esophagus-biopsy stricture distal esophagus-s/p dilatation Savary 15 gastritis antrum-biopsy duodenitis second portion-biopsy 2. Retroflexed views revealed a hiatal hernia RECOMMENDATIONS: 1. Await biopsy results. Biopsy results will not be ready for 7-10 days. If you don't hear from us in two weeks, call our office for biopsy results. 2. Anti-reflux regimen 3. Continue PPI 4. Trial of Baclofen colonoscopy for screening can be done same time with repeat egd PATIENT CONDITION: stable DISPOSITION: Inpatient REPEAT EXAM: Return 3 months EGD Maegan Landers MD eSigned: Maegan Landers MD 11/30/2017 7:34 AM cc: PATIENT NAME: Maldonado Barrientoscastillo Alcantar MR#: [id number]
[2017-11-30 08:30] VITALS: BP 104/64; PULSE 51; RESP 16; TEMP 97.7; O2SAT 98
[2017-11-30] MEDS ORDERED: PANTOPRAZOLE SOD 40 MG DELAYED RELEASE TAB PO SCH (09:00)
--- NOTE | 2017-11-30 09:35 | MB ---
cc: Maegan Landers MD DATE OF CONSULT: 11/29/2017 REFERRING PHYSICIAN: Dr. Henderson. REASON FOR CONSULTATION: Hiccups, abdominal pain, regurgitation. HISTORY OF PRESENT ILLNESS: Mr. Barrientos is a pleasant 53-year-old gentleman with no major medical problems. Came to the emergency room with complaints of hiccups starting last week. The patient stated that initially he felt very tired and had some fever, had some coughing. He went home from work, starting having hiccups. He stated that he had episodes of being unable to breathe, sticking a finger in his throat would make him vomit and make him breathe better also. He stated that he had some abdominal pain, in the epigastrium. He had hiccups in the past, when he was younger, but he never had to come to the emergency room or being hospitalized for management. There is no history of weight loss, melena, hematemesis or hematochezia. No previous medical problems. Never had endoscopies, colonoscopies. Denies any acid reflux. He is actually eating dinner at this time and he states he does have some pain in the epigastrium. PAST MEDICAL HISTORY: Essentially none. PAST SURGICAL HISTORY: None. ALLERGIES: PENICILLIN. FAMILY HISTORY: Mother had a long line of cancer in her 9 siblings. SOCIAL HISTORY: Smokes a half pack of cigarettes daily. Denies any alcohol use or drug use. REVIEW OF SYSTEMS: CONSTITUTIONAL: He did have some fever, no chills. Increased weakness. ENT: No auditory, baseline hearing, visual activity. He does have some hoarseness of his voice. PULMONARY: He does have some cough and shortness of breath. GASTROINTESTINAL: As above. GENITOURINARY: Denies dysuria, hematuria. HEMATOLOGIC: No history of anemia or bleeding disorders. SKIN: No alterations of baseline skin lesion. NEUROLOGIC: No history of TIA or CVA kind of symptoms. PHYSICAL EXAMINATION: GENERAL: On clinical exam, the patient is sitting comfortably at this time, eating dinner. Hoarse voice. VITAL SIGNS: Temperature 98.5, pulse 51, respiration 18, blood pressure 126/72, pulse oximetry 99%. HEENT: PERRLA. NECK: No JVD. No lymphadenopathy. PULMONARY: Chest clear to auscultation, palpation. CARDIOVASCULAR: S1, S2, no murmur. ABDOMEN: Soft, nontender, bowel sounds are present. FABRIC MACHINE OPERATOR: Awake, alert, oriented x 3. No focal signs identified. LABORATORY DATA AND IMAGING: His CMP on admission was suggestive of sodium 129 currently 135; potassium of 5.2, currently 3.9; glucose 90, AST 83, ALT 46, CPK 619. Troponin 0.002. His abdominal CT shows small volume of free fluid in the pelvis, uncertain etiology. Severe atherosclerotic disease. The patient also had a CTA of the chest to rule out PE and that showed air space consolidation in the right upper lobe, with patch air space opacity in the lower lobes. Possible infectious process. Recommend followup imaging. Emphysema and pulmonary nodule needs followup. The patient also had blood cultures and so far were negative. IMPRESSION: Hiccups, mostly triggered by acute pulmonary process, abdominal pain, vomiting and hiccups less likely peptic ulcer disease or gastritis. RECOMMENDATIONS: We will do an upper endoscopy tomorrow to exclude any GI as the origin of his hiccups. Continue IV antibiotics. Continue Thorazine as needed. Trial of Protonix if famotidine does not improve his symptoms. Supportive care. I would like to thank Dr. Henderson for referring him to our office for consultation. Risks, benefits and alternatives of the above procedure with discussed with the patient. Maegan Landers MD BSB/MASOOD , 05:18 PM , 06:08 PM
[2017-11-30 12:00] VITALS: BP 115/61; PULSE 54; RESP 16; TEMP 98.7; O2SAT 98
--- NOTE | 2017-11-30 13:16 | HHI.PR ---
Subjective Remarks Patient seen and examined today in follow-up for hiccups, pneumonia, bacteremia. Blood cultures did grow out staph hemolyticus. Patient has not had any recurrent hiccups since after endoscopy this morning. Patient did have a stricture which was dilated. Patient is feeling better. Vital signs are stable, afebrile Objective Vitals Vital Signs Date Time Temp Pulse Resp B/P (MAP) Pulse Ox O2 Delivery O2 Flow Rate FiO2 11/30/17 12:00 98.7 54 16 115/61 (79) 98 11/30/17 08:30 97.7 51 16 104/64 (77) 98 11/30/17 07:55 63 15 105/67 (80) 98 11/30/17 07:40 66 15 105/67 (80) 98 11/30/17 07:30 97.7 78 16 109/64 (79) 98 11/30/17 06:47 97.2 82 20 121/72 (88) 97 11/30/17 04:00 98.7 52 20 116/70 (85) 99 11/30/17 00:00 98.2 59 16 116/61 (79) 97 11/29/17 23:22 49 11/29/17 22:32 16 11/29/17 19:00 98.2 56 16 118/74 (89) 99 11/29/17 16:00 98.5 51 18 126/72 (90) 99 I/O 11/29/17 11/29/17 11/29/17 11/30/17 11/30/17 11/30/17 07:00 15:00 23:00 07:00 15:00 23:00 Intake Total 720 ml 1440 ml 100 ml Output Total 4 ml Balance 720 ml 1436 ml 100 ml Intake Oral 720 ml 1440 ml Other 100 ml Output Urine Total 4 ml # Voids 3 1 3 # Bowel Movements 0 0 Result Diagram: 11/28/17 1615 11/29/17 0817 Objective Remarks GENERAL: Well-developed, well-nourished, in no acute distress. alert and orientated HEENT: Head is normocephalic without any lesions or masses noted. Facial features are symmetric. Eyes: Extraocular muscles are intact. Conjunctivae were clear. NECK: Supple without any masses. Trachea midline no deviation. No JVD, CARDIAC: Regular rhythm, regular rate. S1/S2 are heard. No murmurs gallops or rubs. LUNGS: Clear to auscultation bilaterally. No wheeze, rhonchi or rales. No use of accessory muscles on inspiration or expiration. ABDOMEN: Soft, nontender. Nondistended. Bowel sounds heard in all 4 quadrants. No organomegaly or masses. Negative rebound, negative guarding EXTREMITIES: No edema, pulses are equal bilaterally. No cyanosis or clubbing NEUROLOGY: Mood and affect appear appropriate. Cranial nerves II through XII grossly intact. Moving all extremities, speech is clear Urinary Catheter: No Vascular Central Line Catheter: No A/P Assessment and Plan Bacteremia Blood cultures from November 26, 2007 showed staph hemolyticus, 1/3 Follow-up cultures have remained negative Discuss with infectious disease who indicated that this is a contamination Intractable hiccups. Improved after treatment with baclofen and esophageal dilatation Baclofen 10 mg every 8 hours GI was consulted and performed endoscopy Esophageal stricture by EGD Status post dilatation Could have promoted aspiration pneumonia Follow-up with GI upon discharge Bilateral pneumonia, possible aspiration Patient was on cefepime, will change to Levaquin p.o. Symptomatically improving Patient has been afebrile, no signs of infection, no leukocytosis GI protection with Protonix Discharge Planning Discharge home in stable condition Activity: Ad alden. Diet: Healthy heart diet Medication per medication reconciliation Follow-up with primary medical doctor in 1 week Júnior Blakely Nov 30, 2017 13:16
[2017-11-30] MEDS ORDERED: BACLOFEN 10 MG TAB PO SCH (14:00)
--- NOTE | 2017-11-30 14:00 | HHI.DCPOC ---
Discharge Care Plan Diagnosis: (1) Esophageal stricture (2) Intractable hiccups (3) Pneumonia Goals to Promote Your Health * To prevent worsening of your condition and complications * To maintain your health at the optimal level Directions to Meet Your Goals Take your medications as prescribed Follow your dietary instruction Follow activity as directed Keep your appointments as scheduled Take your immunizations and boosters as scheduled If your symptoms worsen call your PCP, if no PCP go to Urgent Care Center or Emergency Room Smoking is Dangerous to Your Health. Avoid second hand smoke Call the 24-hour hour crisis hotline for domestic abuse at Júnior Blakely Nov 30, 2017 14:00
[2017-11-30] MEDS ORDERED: LEVA750T9 PO (14:03)
[2017-11-30] MEDS ORDERED: PANT40TA3 PO (14:03)
[2017-11-30] MEDS ORDERED: BACL10TA PO (14:03)
== END 2017-11-30 15:33 | disposition home or self-care (01) | DRG 391 ==
LOC: PHED 15:00 → PHEDA 17:21 → PH3B 19:53
PROVIDERS: ADMIT Hospitalist; ATTEND Hospitalist
PROC: 0DB38ZX Excision of Lower Esophagus, Via Natural or Artificial Opening Endoscopic, Diagnostic (ICD-10-PCS; 2017-11-30)
PROC: 0DB98ZX Excision of Duodenum, Via Natural or Artificial Opening Endoscopic, Diagnostic (ICD-10-PCS; 2017-11-30)
PROC: 0DB78ZX Excision of Stomach, Pylorus, Via Natural or Artificial Opening Endoscopic, Diagnostic (ICD-10-PCS; 2017-11-30)
PROC: 0D758ZZ Dilation of Esophagus, Via Natural or Artificial Opening Endoscopic (ICD-10-PCS; principal; 2017-11-30 07:11)
DX: K22.2 Esophageal obstruction (principal); J69.0 Pneumonitis due to inhalation of food and vomit; R04.2 Hemoptysis; R06.6 Hiccough; F17.210 Nicotine dependence, cigarettes, uncomplicated; R91.1 Solitary pulmonary nodule
CPT/HCPCS: 71045; 71275; 74177; 80048; 80053; 81001; 82550; 82552; 83605; 83690; 84484; 85025; 85610; 85730; 87040; 87081; 87086; 87804; 87880; 88305; 88312; 93005; 96365; C1769; J0692; J2060; J2270; J2405; J3230; J3370; J7030; J7040; J7050; Q9967